=== PATIENT | female | born 1995 | race Two or more races ===

== ENCOUNTER → 2025-03-11 | Emergency (ER) | payer OTHER ==
[~2025-03-11] VITALS: Ht 152.4 cm; Wt 61.2 kg
[~2025-03-11] MED LIST: 0.9 % SODIUM CHLORIDE 1,000 ML IV ONE; 0.9 % SODIUM CHLORIDE 1,000 ML IV STA; DICYCLOMINE HCL 10 MG CAPSULE PO ONE; DICYCLOMINE HCL 20 MG TABLET PO ONE; DIPHENHYDRAMINE HCL 50 MG/ML VIAL 1ML IM ONE; DIPHENHYDRAMINE HCL 50 MG/ML VIAL 1ML ONE; FAMOtidine 10 MG/ML (4ML VIAL) IV ONE; HALOPERIDOL LACTATE 5 MG/ML AMPUL IM ONE; HALOPERIDOL LACTATE 5 MG/ML AMPUL ONE; KETOROLAC TROMETHAMINE 60 MG VIAL IM ONE; LEVSIN/SL0.125 MG SL; METOCLOPRAMIDE HCL 5 MG/ML VIAL IV ONE; MORPHINE SULFATE 4 MG/ML VIAL IV ONE; ONDANSETRON 4 MG TAB.RAPDIS PO ONE; ONDANSETRON ODT8 MG PO
[2025-03-11 13:06] LABS: BASO % 0.5 % (0.1-1.2); EOS # 0.11 (0.04-0.54); EOS % 0.5 % (0.7-7.0); HEMATOCRIT 37.8 % (34.1-44.9); HEMOGLOBIN 13.1 g/dL (11.2-15.7); LYMPH # 3.16 (1.18-3.74); LYMPH % 15.1 % (19.3-53.1); MEAN CORPUSCULAR HEMOGLOBIN 27.8 pg (25.6-32.2); MONO # 1.05 (0.24-0.82); NEUT # 16.31 (1.56-6.13); NEUT % 78.3 % (34.0-71.1); PLATELET COUNT 388 K/uL (163-369); RED BLOOD COUNT 4.71 M/uL (3.93-5.22); RED CELL DISTRIBUTION WIDTH 12.6 % (11.6-14.4)
[2025-03-11 13:27] LABS: INR 1.09; PARTIAL THROMBOPLASTIN TIME 23.4 SECONDS (22.0-34.0); PROTHROMBIN TIME 11.8 SECONDS (9.0-11.5)
[2025-03-11 13:34] LABS: ALBUMIN 4.2 gm/dL (3.4-5.0); ALKALINE PHOSPHATASE 79 U/L (50-136); ALT/SGPT 23 U/L (12-78); AST/SGOT 27 U/L (15-37); BLOOD UREA NITROGEN 14 mg/dL (7-18); BUN CREA RATIO 14 (7.0-25.0); CHLORIDE 107 mmol/L (98-107); CREATININE SERUM 1.03 mg/dL (0.55-1.02); GFR 64.28; GLOBULINA 3.5 G/DL (2.4-3.5); GLUCOSE FASTING 195 mg/dL (65-100); OSMOLALITY SERUM 285 MOSM/KG (275-295); POTASSIUM 3.72 mEq/L (3.5-5.1); SODIUM 140 mmol/L (136-145); TOTAL PROTEIN 7.7 gm/dL (6.4-8.2)
[2025-03-11 13:45] LABS: ANION GAP 23 (10.0-20.0); CARBON DIOXIDE 14 mEq/L (21-32); HCG QUANTITATIVE < 1 mUI/mL (1-3)
[2025-03-11 16:49] LABS: URINE APPEARANCE Clear; URINE BILIRRUBIN Negative (NEGATIVE); URINE BLOOD Negative; URINE COLOR Yellow; URINE LEUKOCYTE Trace; URINE NITRATE Negative; URINE PROTEIN Trace (NEGATIVE)
[2025-03-11 16:52] LABS: URINE BACTERIA 3256.9 uL (0.0-1933); URINE EPITHELIAL CELLS 61.2 uL (0.0-38.8); URINE RBC 7.6 uL (0.0-20.8); URINE WBC 26.7 uL (0.0-23.2)
[2025-03-11 16:59] LABS: URINE CAST 0.29 uL (0.0-1.40); URINE GLUCOSE 500 MG/DL (NEGATIVE); URINE KETONE >=160 (NEGATIVE)
[2025-03-11 18:32] LABS: BASO % 0.3 % (0.1-1.2); HEMATOCRIT 34.1 % (34.1-44.9); HEMOGLOBIN 11.9 g/dL (11.2-15.7); LYMPH # 0.48 (1.18-3.74); LYMPH % 3.1 % (19.3-53.1); MEAN CORPUSCULAR HEMOGLOBIN 28.3 pg (25.6-32.2); MONO # 0.44 (0.24-0.82); MONO % 2.8 % (4.7-12.5); NEUT # 14.66 (1.56-6.13); NEUT % 93.4 % (34.0-71.1); PLATELET COUNT 349 K/uL (163-369); RED BLOOD COUNT 4.21 M/uL (3.93-5.22); RED CELL DISTRIBUTION WIDTH 12.5 % (11.6-14.4)
[2025-03-11 21:56] LABS: BASO % 0.2 % (0.1-1.2); HEMATOCRIT 33.3 % (34.1-44.9); HEMOGLOBIN 11.4 g/dL (11.2-15.7); LYMPH # 0.49 (1.18-3.74); LYMPH % 4.3 % (19.3-53.1); MEAN CORPUSCULAR HEMOGLOBIN 28.1 pg (25.6-32.2); MONO # 0.12 (0.24-0.82); MONO % 1.1 % (4.7-12.5); NEUT # 10.74 (1.56-6.13); NEUT % 94.2 % (34.0-71.1); PLATELET COUNT 280 K/uL (163-369); RED BLOOD COUNT 4.05 M/uL (3.93-5.22); RED CELL DISTRIBUTION WIDTH 12.7 % (11.6-14.4)
== END | disposition home or self-care (01) ==
LOC: ER 11:45
PROVIDERS: General Practice
DX: R10.13 Epigastric pain (principal); K22.0 Achalasia of cardia

== ENCOUNTER 2025-03-12 07:52 | Emergency (ER) | payer OTHER ==
[~2025-03-12] VITALS: Ht 121.9 cm; Wt 61.2 kg
[2025-03-12] MEDS ORDERED: FAMOTIDINE/PF 20 MG in 0.9 % SODIUM CHLORIDE 8 ML IV PUSH STA ×2 (08:18→18:40)
[2025-03-12] MEDS ORDERED: ONDANSETRON HCL 2 MG/ML VIAL IV STA (08:19)
[2025-03-12] MEDS ORDERED: ONDANSETRON HCL 2 MG/ML VIAL ONE (08:22)
[2025-03-12] MEDS ORDERED: FAMOTIDINE/PF 20 MG/2 ML VIAL ONE ×2 (08:22→18:48)
[2025-03-12] MEDS ORDERED: MORPHINE SULFATE 4 MG/ML VIAL IV ONE ×2 (08:30→18:45)
[2025-03-12 08:42] LABS: BASO % 0.1 % (0.1-1.2); HEMOGLOBIN 12.5 g/dL (11.2-15.7); LYMPH # 1.47 (1.18-3.74); LYMPH % 6.2 % (19.3-53.1); MEAN CORPUSCULAR HEMOGLOBIN 28.5 pg (25.6-32.2); MONO % 4.2 % (4.7-12.5); NEUT # 20.97 (1.56-6.13); NEUT % 88.8 % (34.0-71.1); PLATELET COUNT 383 K/uL (163-369); RED BLOOD COUNT 4.38 M/uL (3.93-5.22)
[2025-03-12 10:14] LABS: CALCIUM 8.8 mg/dL (8.5-10.1); CREATININE SERUM 0.76 mg/dL (0.55-1.02); GFR 91.29; POTASSIUM 3.7 mEq/L (3.5-5.1)
[2025-03-12 13:05] LABS: BASO % 0.2 % (0.1-1.2); HEMATOCRIT 34.4 % (34.1-44.9); HEMOGLOBIN 11.7 g/dL (11.2-15.7); LYMPH # 1.67 (1.18-3.74); LYMPH % 7.3 % (19.3-53.1); MONO # 1.43 (0.24-0.82); MONO % 6.3 % (4.7-12.5); NEUT # 19.47 (1.56-6.13); NEUT % 85.7 % (34.0-71.1); PLATELET COUNT 316 K/uL (163-369); RED BLOOD COUNT 4.18 M/uL (3.93-5.22); RED CELL DISTRIBUTION WIDTH 13.2 % (11.6-14.4)
[2025-03-12] MEDS ORDERED: METHYLPREDNISOLONE SOD SUCC 125 MG VIAL IV ONE (18:45)
[2025-03-12] MEDS ORDERED: 0.9 % SODIUM CHLORIDE 1,000 ML IV SCH (18:45)
[2025-03-12] MEDS ORDERED: METHYLPREDNISOLONE SOD SUCC 125 MG VIAL ONE (18:48)
[2025-03-12] MEDS ORDERED: ONDANSETRON ODT8 MG PO (20:54)
[2025-03-12] MEDS ORDERED: LEVSIN/SL0.125 MG SL (20:54)
== END 2025-03-12 22:09 | disposition home or self-care (01) ==
LOC: ER 07:52
PROVIDERS: Emergency Medicine
DX: R10.13 Epigastric pain (principal)